=== PATIENT | male | born 1970 | race Two or more races ===

== ENCOUNTER 2019-04-01 10:49 | Day surgery (SDC) | payer OTHER ==
[~2019-04-01] VITALS: Ht 167.6 cm; Wt 89.1 kg
[2019-04-01] MEDS ORDERED: FENTANYL PF 250 MCG/5ML ONE ×2 (11:11→12:27)
[2019-04-01] MEDS ORDERED: SUGAMMADEX 200 MG/2 ML IVPush ONE ×2 (11:16)
[2019-04-01 11:31] VITALS: BP 159/54
[2019-04-01] MEDS ORDERED: LACTATED RINGERS 1,000 ML IV SCH (11:38)
[2019-04-01] MEDS ORDERED: BUPIVACAINE/PF 0.25% ONE (11:45)
[2019-04-01] MEDS ORDERED: LIDOCAINE 1%, 20ML ONE (11:45)
[2019-04-01] MEDS ORDERED: ACETAMINOPHEN 500 MG TABLET ONE (11:46)
[2019-04-01] MEDS ORDERED: ACETAMINOPHEN 500 MG TABLET PO ONE (12:00)
[2019-04-01] MEDS ORDERED: LABETALOL 5MG/ML, 20ML IV PRN (12:00)
[2019-04-01] MEDS ORDERED: FENTANYL PF 100 MCG/2ML IV PRN (12:00)
[2019-04-01] MEDS ORDERED: HALOPERIDOL 5 MG/ML IV PRN (12:00)
[2019-04-01] MEDS ORDERED: PROMETHAZINE 25 MG/ML, 1ML IV PRN (12:00)
[2019-04-01] MEDS ORDERED: hydrALAzine 20 MG/ML, 1ML IV PRN (12:00)
[2019-04-01] MEDS ORDERED: HYDROmorphone 2 MG/ML, 1ML IVPush PRN (12:00)
[2019-04-01] MEDS ORDERED: MEPERIDINE/PF 25MG/ML,1ML IVPush PRN (12:00)
[2019-04-01] MEDS ORDERED: KETOROLAC 30 MG/1 ML ONE (12:14)
[2019-04-01] MEDS ORDERED: CEFAZOLIN 1,000 MG ONE (13:13)
[2019-04-01] MEDS ORDERED: DEXAMETHASONE 4 MG/ML, 1ML ONE (13:13)
[2019-04-01] MEDS ORDERED: ONDANSETRON 2MG/ML, 2ML ONE (13:13)
[2019-04-01] MEDS ORDERED: PROPOFOL 10 MG/ML, 20ML ONE (13:13)
== END 2019-04-01 17:00 | disposition home or self-care (01) ==
LOC: OUT 10:49
PROVIDERS: ATTEND Urology
DX: C60.9 Malignant neoplasm of penis, unspecified (principal); N47.6 Balanoposthitis; N48.0 Leukoplakia of penis; N48.89 Other specified disorders of penis; Z72.89 Other problems related to lifestyle; Z87.440 Personal history of urinary (tract) infections
CPT/HCPCS: 54060; 54163; 88305; 88331; J0690; J1100; J1885; J2405; J2704; J3010; J3490; J7120